=== PATIENT | male | born 1995 | race Caucasian/White ===

== ENCOUNTER 2016-12-27 00:21 | Emergency (ER) | payer OTHER ==
[2016-12-27] MEDS ORDERED: ONDANSETRON 4 MG/2 ML VIAL ONE (00:27)
[2016-12-27] MEDS ORDERED: NS 2,000 ML IV ONE (00:44)
[2016-12-27] MEDS ORDERED: ONDANSETRON 4 MG/2 ML VIAL IVP ONE (00:45)
--- NOTE | 2016-12-27 00:57 | EDPHY ---
H & P Stated Complaint: nvd HPI/ROS: HPI CHIEF COMPLAINT: nausea, vomiting, diarrhea, hyperventilation, tingling in hands and around mouth HISTORY OF PRESENT ILLNESS: This patient very pleasant 21-year-old male, denies any significant medical history or surgical history presents emergency room after he developed sore throat, dry cough, chills, muscle aches, nausea vomiting. Patient tells me that his significant other recently had flu. He thinks he may have the flu. Tells me that earlier today he had a cough and some sore throat. This has since resolved, however around 730 this evening he developed some chills some nausea and vomiting. He had watery diarrhea. He denies having a fever. Denies chest pain or shortness of breath. Denies abdominal pain. He called 911 this evening as was vomiting multiple times nonbilious nonbloody he started having spasms of his hands tingling around his mouth. This has since resolved with IV fluids and Zofran. Past Medical History: Denies medical history Past Surgical History: Denies Social History: denies use of drugs alcohol tobacco products Family History: Noncontributory ROS REVIEW OF SYSTEMS: A comprehensive 10 point review of systems is otherwise negative aside from elements mentioned in the history of present illness. Exam Constitutional triage nursing summary reviewed, vital signs reviewed, awake/ alert. Eyes normal conjunctivae and sclera, EOMI, PERRLA. HENT normal inspection, atraumatic, moist mucus membranes, no epistaxis, neck supple/ no meningismus, no raccoon eyes. Respiratory clear to auscultation bilaterally, normal breath sounds, no respiratory distress, no wheezing. Cardiovascular rate normal, regular rhythm, no murmur, no edema, distal pulses normal. Gastrointestinal soft, non-tender, no rebound, no guarding, normal bowel sounds, no distension, no pulsatile mass. Genitourinary no CVA tenderness. Musculoskeletal no midline vertebral tenderness, full range of motion, no calf swelling, no tenderness of extremities, no meningismus, good pulses, neurovascularly intact. Skin pink, warm, & dry, no rash, skin atraumatic. Neurologic awake, alert and oriented x 3, AAOx3, moves all 4 extremities equally, motor intact, sensory intact, CN II-XII intact, normal cerebellar, normal vision, normal speech. Psychiatric normal mood/affect. Heme/Lymph/Immune no lymphadenopathy. Differential Diagnosis: Includes but is not limited to in a particular order, hyperventilation, acute nausea vomiting, dehydration, electrolyte abnormality, low potassium Medical Decision Making:This this patient had an IV established patient received IV fluid bolus 2 L, will check blood work including electrolytes. Patient be given Zofran for nausea. His abdomen is soft nontender. He feels much better since arriving by EMS. He did receive fluid approximately 500 cc prior to me seeing him he tells me this makes a great improvement. He denies any numbness or tingling, denies any weakness, denies any abdominal pain. Denies nausea at this time. Re-evaluation: 0227: Re-evaluation at this time this patient's abdomen is soft nontender there is no guarding or peritoneal signs he is not having any vomiting. Feels much better after 3 L of normal saline. His blood work has been reviewed shows a high leukocytosis most likely reactive to vomiting. Will repeat this after 3 L. He has not been febrile. He is repeat abdominal exam is benign specifically has no tenderness specifically no right lower quadrant pain. I have updated him and his mom at bedside. 0353: Re-examination at this time abdomen remained soft is not vomiting. He p.o. challenge well. Repeat blood work shows a white count that is going down. Most likely high leukocytosis due to reactive from acute nausea vomiting and diarrhea. No indication to scan his abdomen at this time. His abdomen is soft nontender he has no fever he is not vomiting. He appears much better after IV fluids and Zofran. I will allow her to go home with Zofran however he has been given strict return precautions he understands return emergency room if develops any worsening symptoms includes abdominal pain, fever or continues to have vomiting. He understands. Mom at bedside updated. Source: Patient - Personal History Current Tetanus/Diphtheria Vaccine: Yes Current Tetanus Diphtheria and Acellular Pertussis (TDAP): Yes - Medical/Surgical History Hx Asthma: No Hx Chronic Respiratory Disease: No Hx Diabetes: No Hx Cardiac Disease: No Hx Renal Disease: No Hx Cirrhosis: No Hx Alcoholism: No Hx HIV/AIDS: No Hx Splenectomy or Spleen Trauma: No - Social History Smoking Status: Current some day smoker Constitutional: Initial Vital Signs Temperature (C) 36.3 C 12/27/16 00:25 Heart Rate 74 12/27/16 00:25 Respiratory Rate 20 12/27/16 00:25 Blood Pressure 143/68 H 12/27/16 00:25 O2 Sat (%) 99 12/27/16 00:25 O2 Delivery Mode Room Air Medical Decision Making - Data Points Laboratory Results: Laboratory Results 12/27/16 03:30 12/27/16 00:30 12/27/16 12/27/16 12/27/16 03:30 02:35 00:30 WBC 18.74 H 10^3/uL REJ 22.44 H 10^3/uL (3.80-9.50) (3.80-9.50) RBC 4.77 10^6/uL REJ 5.72 10^6/uL (4.40-6.38) (4.40-6.38) Hgb 14.8 g/dL REJ 17.8 H g/dL (13.7-17.5) (13.7-17.5) Hct 42.4 % REJ 51.7 H % (40.0-51.0) (40.0-51.0) MCV 88.9 fL REJ 90.4 fL (81.5-99.8) (81.5-99.8) MCH 31.0 pg REJ 31.1 pg (27.9-34.1) (27.9-34.1) MCHC 34.9 g/dL REJ 34.4 g/dL (32.4-36.7) (32.4-36.7) RDW 13.2 % REJ 13.3 % (11.5-15.2) (11.5-15.2) Plt Count 243 D 10^3/uL REJ 364 10^3/uL (150-400) (150-400) MPV 9.3 fL REJ 9.8 fL (8.7-11.7) (8.7-11.7) Neut % (Auto) 93.3 H % REJ 84.7 H % (39.3-74.2) (39.3-74.2) Lymph % (Auto) 1.9 L % REJ 8.0 L % (15.0-45.0) (15.0-45.0) Divide % (Auto) 4.1 L % REJ 6.2 % (4.5-13.0) (4.5-13.0) Eos % (Auto) 0.1 L % REJ 0.2 L % (0.6-7.6) (0.6-7.6) Baso % (Auto) 0.3 % REJ 0.5 % (0.3-1.7) (0.3-1.7) Nucleat RBC Rel Count 0.0 % REJ 0.0 % (0.0-0.2) (0.0-0.2) Absolute Neuts (auto) 17.49 H 10^3/uL REJ 19.02 H 10^3/uL (1.70-6.50) (1.70-6.50) Absolute Lymphs (auto) 0.36 L 10^3/uL REJ 1.79 10^3/uL (1.00-3.00) (1.00-3.00) Absolute Monos (auto) 0.76 10^3/uL REJ 1.40 H 10^3/uL (0.30-0.80) (0.30-0.80) Absolute Eos (auto) 0.02 L 10^3/uL REJ 0.04 10^3/uL (0.03-0.40) (0.03-0.40) Absolute Basos (auto) 0.05 10^3/uL REJ 0.11 H 10^3/uL (0.02-0.10) (0.02-0.10) Absolute Nucleated RBC 0.00 10^3/uL REJ 0.00 10^3/uL (0-0.01) (0-0.01) Immature Gran % 0.3 % REJ 0.4 % (0.0-1.1) (0.0-1.1) Immature Gran # 0.06 10^3/uL REJ 0.08 10^3/uL (0.00-0.10) (0.00-0.10) Sodium 142 mEq/L (134-144) Potassium 4.9 mEq/L (3.5-5.2) Chloride 102 mEq/L (97-110) Carbon Dioxide 18 L mEq/l (22-31) Anion Gap 22 H mEq/L (8-16) BUN 19 mg/dL (7-23) Creatinine 0.9 mg/dL (0.7-1.3) Estimated GFR > 60 Glucose 147 H mg/dL (70-100) Calcium 10.7 H mg/dL (8.5-10.4) Phosphorus 1.9 L mg/dL (2.5-4.5) Magnesium 1.9 mg/dL (1.6-2.3) Total Bilirubin 1.3 mg/dL (0.1-1.4) Conjugated Bilirubin 0.6 H mg/dL (0.0-0.5) Unconjugated Bilirubin 0.7 mg/dL (0.0-1.1) AST 40 IU/L (17-59) ALT 32 IU/L (21-72) Alkaline Phosphatase 82 IU/L (38-126) Total Protein 9.3 H g/dL (6.3-8.2) Albumin 5.3 H g/dL (3.5-5.0) Lipase 52.0 IU/L (23-300) Influenza Typ A,B (DFA) Pending Medications Given: Discontinued Medications Sodium Chloride (Ns) 2,000 mls @ 0 mls/hr IV ONCE ONE PRN Reason: Wide Open Stop: 12/27/16 00:45 Last Admin: 12/27/16 00:57 Dose: 2,000 mls Sodium Chloride (Ns) 1,000 mls @ 0 mls/hr IV ONCE ONE PRN Reason: Wide Open Stop: 12/27/16 01:50 Last Admin: 12/27/16 01:50 Dose: 1,000 mls Ondansetron HCl (Zofran) 4 mg IVP EDNOW ONE Stop: 12/27/16 00:46 Last Admin: 12/27/16 00:57 Dose: 4 mg Promethazine HCl (Phenergan Injection) 6.25 mg IVP EDNOW ONE Stop: 12/27/16 01:34 Last Admin: 12/27/16 01:37 Dose: 6.25 mg Departure - Departure Disposition: Home, Routine, Self-Care Clinical Impression: Nausea and vomiting Qualifiers: Vomiting type: unspecified Vomiting Intractability: non-intractable Qualifier Code: (R11.2) Nausea with vomiting, unspecified Condition: Good Instructions: Acute Nausea and Vomiting (ED) Additional Instructions: 1. Do not eat any spicy fatty greasy foods next 24 hours. He had a very bland diet clear liquids for the next 6 hours. 2. please return to the emergency room if develops any worsening symptoms includes worsening abdominal pain, fever, vomiting. 3. I have given you a limited prescription for Zofran to help with nausea. Referrals: NONE *PRIMARY CARE P,. [Primary Care Provider] - As per Instructions
[2016-12-27 01:07] LABS: % IMMATURE GRANULYOCYTES 0.4 % (0.0-1.1); ABSOLUTE IMMATURE GRANULOCYTES 0.08 10^3/uL (0.00-0.10); ADD DIFF? NO; ADD MORPH? NO; ADD SCAN? NO; ATYPICAL LYMPHOCYTE FLAG 10 (0-99); FRAGMENT RBC FLAG 0 (0-99); HEMATOCRIT 51.7 % (40.0-51.0); HEMOGLOBIN 17.8 g/dL (13.7-17.5); LEFT SHIFT FLG 10 (0-99); LIPEMIA HEMOLYSIS FLAG 90 (0-99); MEAN CELL HEMOGLOBIN 31.1 pg (27.9-34.1); MEAN CELL HEMOGLOBIN CONCENTR. 34.4 g/dL (32.4-36.7); MEAN CELL VOLUME 90.4 fL (81.5-99.8); MEAN PLATELET VOLUME 9.8 fL (8.7-11.7); PLATELET CLUMPS FLAG 0 (0-99); PLATELET COUNT 364 10^3/uL (150-400); RED BLOOD CELL COUNT 5.72 10^6/uL (4.40-6.38); RED CELL DISTRIBUTION WIDTH 13.3 % (11.5-15.2)
[2016-12-27 01:13] LABS: ALANINE AMINOTRANSFERASE 32 IU/L (21-72); ALBUMIN 5.3 g/dL (3.5-5.0); ALKALINE PHOSPHATASE 82 IU/L (38-126); ANION GAP 22 mEq/L (8-16); ASPARTATE AMINOTRANSFERASE 40 IU/L (17-59); BILIRUBIN,TOTAL 1.3 mg/dL (0.1-1.4); BILIRUBIN-CONJUGATED 0.6 mg/dL (0.0-0.5); BILIRUBIN-UNCONJUGATED 0.7 mg/dL (0.0-1.1); CALCIUM 10.7 mg/dL (8.5-10.4); CARBON DIOXIDE 18 mEq/l (22-31); CHLORIDE 102 mEq/L (97-110); CREATININE 0.9 mg/dL (0.7-1.3); GLOMERULAR FILTRATION RATE > 60; GLUCOSE 147 mg/dL (70-100); POTASSIUM 4.9 mEq/L (3.5-5.2); SODIUM 142 mEq/L (134-144); TOTAL PROTEIN 9.3 g/dL (6.3-8.2)
[2016-12-27] MEDS ORDERED: PROMETHAZINE HCL 25 MG/ML INJ ONE (01:32)
[2016-12-27] MEDS ORDERED: PROMETHAZINE HCL 25 MG/ML INJ IVP ONE (01:33)
[2016-12-27] MEDS ORDERED: NS 1,000 ML IV ONE (01:49)
[2016-12-27] MEDS ORDERED: K PHOS 10 MMOL in D5W 250 ML IV ONE (01:54)
[2016-12-27 03:40] LABS: % IMMATURE GRANULYOCYTES 0.3 % (0.0-1.1); ABSOLUTE IMMATURE GRANULOCYTES 0.06 10^3/uL (0.00-0.10); ADD DIFF? NO; ADD MORPH? NO; ADD SCAN? NO; ATYPICAL LYMPHOCYTE FLAG 0 (0-99); FRAGMENT RBC FLAG 0 (0-99); HEMATOCRIT 42.4 % (40.0-51.0); HEMOGLOBIN 14.8 g/dL (13.7-17.5); LEFT SHIFT FLG 20 (0-99); LIPEMIA HEMOLYSIS FLAG 90 (0-99); MEAN CELL HEMOGLOBIN CONCENTR. 34.9 g/dL (32.4-36.7); MEAN CELL VOLUME 88.9 fL (81.5-99.8); MEAN PLATELET VOLUME 9.3 fL (8.7-11.7); PLATELET CLUMPS FLAG 10 (0-99); PLATELET COUNT 243 10^3/uL (150-400); RED BLOOD CELL COUNT 4.77 10^6/uL (4.40-6.38); RED CELL DISTRIBUTION WIDTH 13.2 % (11.5-15.2)
[2016-12-27] MEDS ORDERED: ONDANSETRON 4MG PREPACK#2 BTL TAKEHOME ONE (03:55)
[2016-12-27 04:04] VITALS: BP 120/64; PULSE 76; RESP 18; TEMP 99; O2SAT 94
== END 2016-12-27 04:20 | disposition home or self-care (01) ==
DX: R11.2 Nausea with vomiting, unspecified (principal); F17.200 Nicotine dependence, unspecified, uncomplicated
CPT/HCPCS: 96374; J2405; J2550